=== PATIENT | female | born 1995 | race Two or more races ===

== ENCOUNTER 2020-04-29 01:00 | Emergency (ER) | payer OTHER ==
[~2020-04-29] VITALS: Ht 152.4 cm; Wt 60.3 kg
--- NOTE | 2020-04-29 01:13 | NUR ---
PATIENT CAME TO ER BED BIB [employer] IN CUSTODY C/O " I HAVE COVID AND I HAVE CANCER". PATIENT IS AGITATED TOWARDS OFFICERS. PATIENT IS AAOX4. NO SOB. BREATHING EVENLY AND UNLABORED ON ROOM AIR. CONNECTED TO MONITOR.
--- NOTE | 2020-04-29 01:32 | NUR ---
COVID SWAB COLLECTED AND SENT TO LAB.
--- NOTE | 2020-04-29 01:42 | NUR ---
PATIENT IS MEDICALLY CLEARED FOR BOOKING. PATIENT IS NOW IN [facility] OF [facility].
[2020-04-29 01:47] VITALS: BP 121/82
== END 2020-04-29 01:47 ==
LOC: ER 01:02
DX: Z04.89 Encounter for examination and observation for other specified reasons (principal); R19.7 Diarrhea, unspecified; Z20.828 Contact with and (suspected) exposure to other viral communicable diseases
CPT/HCPCS: 99283; C9803; U0003